=== PATIENT | female | born 1950 | race Hispanic/Latino ===

== ENCOUNTER → 2017-10-30 | Day surgery (SDC) | payer MEDICARE ==
[2017-10-29 14:50] LABS: BASOPHILS % 0.6 % (0.0-1.0); EOSINOPHILS # (AUTO) 0.1 (0.0-0.4); HEMATOCRIT 35.9 % (34.2-44.1); HEMOGLOBIN 12.3 g/dL (12.0-16.0); LYMPHOCYTES # (AUTO) 2.4 (1.0-3.2); LYMPHOCYTES % 35.3 % (18.0-39.1); MEAN CORPUSCULAR HEMOGLOBIN 31.5 pg (28-32); MEAN CORPUSCULAR HGB CONC 34.3 g/dL (31-35); MEAN CORPUSCULAR VOLUME 91.8 fL (81-99); MONOCYTES # (AUTO) 0.5 (0.2-0.8); MONOCYTES % 7.4 % (4.4-11.3); NEUTROPHILS # (AUTO) 3.7 (2.1-6.9); NEUTROPHILS % 54.4 % (38.7-80.0); PLATELET COUNT 236 x10e3/uL (140-360); RED BLOOD COUNT 3.91 x10e6/uL (3.6-5.1)
[2017-10-29 15:04] LABS: INR 0.99; PROTHROMBIN TIME 12.3 seconds (11.9-14.5)
[2017-10-29 15:14] LABS: ALANINE AMINOTRANSFERASE 23 IU/L (0-55); ALBUMIN 3.7 g/dL (3.5-5.0); ALBUMIN/GLOBULIN RATIO 1.1 (0.8-2.0); ALKALINE PHOSPHATASE 63 IU/L (40-150); ANION GAP 12.8 mmol/L (8-16); BLOOD UREA NITROGEN 15 mg/dL (7-26); BUN/CREATININE RATIO 18 (6-25); CALCIUM 9.5 mg/dL (8.4-10.2); CARBON DIOXIDE 30 mmol/L (22-29); CHLORIDE 97 mmol/L (98-107); CHOL/HDL RATIO 4.8 (3.0-3.6); CHOLESTEROL 216 MD/DL (0-199); CREATININE, SERUM 0.83 mg/dL (0.57-1.11); EST GLOMERULAR FILTRATION RATE > 60 ML/MIN (60-); GLUCOSE 139 mg/dL (74-118); HDL CHOLESTEROL 45 MG/DL (40-60); LDL CHOLESTEROL 122 MG/DL (60-130); POTASSIUM 3.8 mmol/L (3.5-5.1); SODIUM 136 mmol/L (136-145); TRIGLYCERIDES 244 MG/DL (0-149)
[2017-10-30] VITALS (9 sets, daily range): BP systolic 126–177; BP diastolic 54–73
[~2017-10-30] VITALS: Ht 157.5 cm; Wt 74.4 kg
[~2017-10-30] MED LIST: AMLODIPINE BESYL5 MG PO; ASPIRIN 325 MG TAB ONE; ASPIRIN81 MG PO; ATORVASTATIN CA20 MG PO; BENZONATATE100 MG PO; CLOPIDOGREL BISULFATE 75 MG TAB ONE; FENTANYL CITRATE/PF 100MCG/2 ML INJ ONE; GABAPENTIN100 MG; GABAPENTIN300 MG PO; GUAIFENESI100 MG/5 M PO; HEPARIN SOD (PORCINE) 1000 UNIT/ML 30ML ONE; HEPARIN SOD/SOD CHLORIDE 2,000 ML ONE; HYDRALAZINE HCL 20 MG/ML VIAL ONE; IOPAMIDOL 300MG/ML 100 ML INFUS..BTL IV ONE; IOPAMIDOL 370 MG/ML 200 ML INFUS..BTL INJ ONE; LIDOCAINE HCL 2% LOCAL 20 ML VIAL ONE; LOPRESSOR25 MG PO; LOSARTAN POTAS100 MG PO; LOVAZA1 GM PO; MIDAZOLAM HCL 2 MG/2 ML VIAL ONE; MULTIVITAMINS1 EAC7 PO; PANTOPRAZOLE SO40 MG PO; PIOGLITAZONE30 MG PEG; SODIUM CHLORIDE 0.9% 1000ML 1,000 ML ONE; SORE THROAT LO1 EAC3 PO; TORSEMIDE10 MG PO; [UNRECOGNIZED DRUG - OTHER] PO
--- NOTE | 2017-10-30 19:18 | Operative Report ---
DATE OF PROCEDURE: October 30, 2017 PROCEDURE PERFORMED: Cardiac catheterization. PROCEDURE INDICATIONS 1. Angina pectoris, CCS-III, stable with an abnormal stress test done at outside hospital. 2. Life-limiting claudication affecting left more than right lower extremity. PROCEDURES PERFORMED 1. Left heart catheterization. 2. Selective coronary angiography. 3. Left internal mammary artery to left anterior descending graft angiography. 4. Aortogram of descending aorta. 5. Abdominal aortogram. 6. Selective lower extremity angiography, bilateral. 7. Third-order catheter placement from right common femoral artery to left common femoral artery. 8. Additional third-order catheter placement from right common femoral artery to the left popliteal artery for hmhhj-ekv-pdon vessel angiography of the left lower extremity due to an issue with poorly visualized vessel. 9. Left anterior tibial percutaneous transluminal angioplasty 10. Right common femoral artery 6-Colombian Angio-Seal closure. PROCEDURE COMPLICATIONS: None. ESTIMATED BLOOD LOSS: Less than 15 mL. PROCEDURE SUMMARY: After consent was obtained, patient was prepped and draped in a sterile fashion and the right femoral site was locally infiltrated with 2% lidocaine. Access was obtained with micropuncture, and a short 6-Colombian sheath was placed. All catheters were railed to their respective positions over a leading wire for the interventional portion of the procedure, and heparin was used to maintain an ACT over 250. Aspirin and Plavix were also provided. 1. The LV pressure was 201/12 with end-diastolic pressure of 30. 2. The aortic pressure was 197/74. 3. LV-gram reveals preserved LV systolic function, normal regional wall motion and a left ventricular ejection fraction of 60% to 65%. 4. Left main large in caliber with a 20% distal stenosis gives an LAD and a circumflex. 5. The LAD has proximal luminal irregularities. In the distal portion after a diagonal stent, the LAD has 100% stenosis. Distal to the stenosis there is patent filling of the LAD from a PALACIOS to LAD which is patent. Collaterals arise from the distal LAD fed by the PALACIOS. These collaterals fill the RPDA and RPLV and are grade 2 collaterals. 6. The circumflex has 40% mid calcific stenosis, gives a left atrial branch and 2 obtuse marginals. 7. The right coronary artery is dominant. In the proximal to midportion it is 100% stenosed with distal filling of the midsegment of the RCA from bridging collaterals from the proximal RCA. The distal RCA is occluded again 100%. Distal to this the RPDA and RPLV fill from collaterals on the distal LAD via the PALACIOS. 8. No additional grafts were noted other than an occluded graft to RCA observed on aortogram. No other patent grafts other than the PALACIOS, which is patent, were observed. The abdominal aorta infrarenal has a 40% extrinsic calcific lesion and gives off the iliac arteries. The iliac arteries each have 30% stenosis. There is a back orthopedic hardware noted. Therefore, orthogonal views were performed to confirm patency of the iliac arteries. The internal and external iliac arteries have luminal irregularities filled with the common femoral and profunda femoris, SFAs and popliteal arteries bilaterally with a stenosis less than 30% . The proximal segment of the right anterior tibial, TP trunk, peroneal and posterior tibial artery seems patent. However, the mid to distal segment of these vessels are not well visualized. The left anterior tibial in the midportion had 100% chronic total occlusion. This was revascularized with a resultant less than 10% residual stenosis, no dissection, no perforation, UVALDO 3 flow post procedure. TP trunk, peroneal artery and posterior tibial artery on the left are patent with luminal irregularities. For the interventional portion of the procedure, a Roadrunner wire was used to advance a Seeker catheter into the proximal stent of the left anterior tibial. This was exchanged for a Runthrough wire, which would continue to engage collaterals at the INSULATION BOARD HEAD SAW OPERATOR proximal . This was, therefore, exchanged further for a wire, which was able to cross adequately the area of stenosis. A Seeker catheter was advanced past the occlusion and intraluminal catheter position confirmed; therefore, exchanged for a [place] wire over which a 3.0 x 150 Ultraverse balloon was inflated across the area of stenosis with resultant excellent results as described above. At the end of the procedure, a right common femoral artery 6-Colombian Angio-Seal was deployed, achieving hemostasis. CONCLUSION: Patent left internal mammary artery to left anterior descending. Chronic total occlusion of the right coronary artery with filling via collaterals. Uncontrolled hypertension and peripheral arterial disease, now status post left anterior tibial percutaneous transluminal angioplasty. RECOMMENDATIONS: Aggressive medical therapy. Continue medical management for coronary artery disease and peripheral arterial disease including aspirin, statin, beta sixto therapy. Add clopidogrel for patient status post revascularization of the left anterior tibial. Follow up in the office in 1 to 2 weeks. Job#: [id number] EV
== END | disposition home or self-care (01) ==
LOC: CATH LAB 08:15
PROVIDERS: ATTEND Internal Medicine Cardiovascular Disease
DX: I25.708 Atherosclerosis of coronary artery bypass graft(s), unspecified, with other forms of angina pectoris (principal); I25.82 Chronic total occlusion of coronary artery; I70.213 Atherosclerosis of native arteries of extremities with intermittent claudication, bilateral legs; I70.92 Chronic total occlusion of artery of the extremities; R94.39 Abnormal result of other cardiovascular function study; I10 Essential (primary) hypertension; E78.5 Hyperlipidemia, unspecified; R01.1 Cardiac murmur, unspecified; I83.893 Varicose veins of bilateral lower extremities with other complications; E11.8 Type 2 diabetes mellitus with unspecified complications; E66.9 Obesity, unspecified; Z01.810 Encounter for preprocedural cardiovascular examination; Z01.812 Encounter for preprocedural laboratory examination; Z79.02 Long term (current) use of antithrombotics/antiplatelets; Z79.82 Long term (current) use of aspirin; Z79.84 Long term (current) use of oral hypoglycemic drugs; Z68.31 Body mass index [BMI] 31.0-31.9, adult; Z95.1 Presence of aortocoronary bypass graft; Z95.5 Presence of coronary angioplasty implant and graft; Z95.820 Peripheral vascular angioplasty status with implants and grafts; Z82.49 Family history of ischemic heart disease and other diseases of the circulatory system
CPT/HCPCS: 36415; 37228; 80053; 80061; 85025; 85610; 93005; 93459; C1769 ×2; C1887; J0360; J1644; J2001; J2250; J7030; Q9967 ×2; 36140; 36200; 37232; 75630; 75710

== ENCOUNTER → 2018-03-13 | Outpatient (CLI) | payer MEDICARE ==
[~2018-03-13] MED LIST changes: -ASPIRIN 325 MG TAB ONE; -CLOPIDOGREL BISULFATE 75 MG TAB ONE; +CLOPIDOGREL75 MG PO; -FENTANYL CITRATE/PF 100MCG/2 ML INJ ONE; -HEPARIN SOD (PORCINE) 1000 UNIT/ML 30ML ONE; -HEPARIN SOD/SOD CHLORIDE 2,000 ML ONE; -HYDRALAZINE HCL 20 MG/ML VIAL ONE; -IOPAMIDOL 300MG/ML 100 ML INFUS..BTL IV ONE; -LIDOCAINE HCL 2% LOCAL 20 ML VIAL ONE; -MIDAZOLAM HCL 2 MG/2 ML VIAL ONE; -PIOGLITAZONE30 MG PEG; +PIOGLITAZONE30 MG PO; +SODIUM CHLORIDE 0.9% 100 ML 100 ML ONE; -SODIUM CHLORIDE 0.9% 1000ML 1,000 ML ONE
[2018-03-13 15:58] LABS: BLOOD UREA NITROGEN 11 mg/dL (7-26); BUN/CREATININE RATIO 14 (6-25); CREATININE, SERUM 0.79 mg/dL (0.57-1.11); EST GLOMERULAR FILTRATION RATE > 60 ML/MIN (60-)
--- NOTE | 2018-03-14 07:59 | Diagnostic Imaging Report ---
CTA of the abdomen and pelvis and bilateral lower extremities with contrast History: Leg pain, history of lower extremity angiography 10/2017. Comparison: <None available>. Technique: Multidetector CT scanning of the abdomen and pelvis and bilateral lower extremities was administered in arterial phase after intravenous administration of 100 cc of Isovue 370. No oral contrast was given. Sagittal and coronal multiplanar as well as volume rendering reformations were obtained. Discussion: Vascular findings: Abdominal aorta and proximal branches: Streak artifact from spinal hardware somewhat limits evaluation of the mid abdominal aorta. There are extensive atherosclerotic calcifications involving the abdominal aorta, and moderate atherosclerotic calcifications of the branch vessels. No evidence of aortic aneurysm or dissection. Celiac artery, SMA, and RACIEL origins appear patent. There are two renal arteries bilaterally. The bilateral common, external, and internal iliac arteries appear patent. Bilateral lower extremity runoff: Right lower extremity: Mild atherosclerotic changes of the common femoral artery without stenosis. Moderate atherosclerotic changes of the superficial femoral artery with a focal severe stenosis on axial image 160 and mild to moderate multifocal stenoses elsewhere. The deep femoral artery is patent. The popliteal artery demonstrates mild atherosclerotic changes without stenosis. The peroneal artery is patent throughout its course but diminutive distally. The posterior tibial artery is patent throughout its course. Mild non-specific soft tissue stranding in the lower leg. Left lower extremity: Mild atherosclerotic changes of the common and superficial femoral arteries without stenosis. The deep femoral artery is patent. The popliteal artery demonstrates mild atherosclerotic changes without stenosis. Anterior tibial artery demonstrates moderate to severe stenoses in the proximal and mid portion but is patent distally and supplies a patent dorsalis pedis artery. The peroneal artery is patent in the proximal and mid portion but not visualized distally at the level of the distal tibia. The posterior tibial artery demonstrates mild multifocal stenoses but is patent to the foot. There are surgical clips along the soft tissues of the left lower leg medially. Mild non-specific soft tissue stranding in the lower leg. Abdomen: Scattered dependent atelectatic changes. Four chamber cardiomegaly. Coronary atherosclerosis. No focal hepatic lesions or biliary ductal dilatation. Status post cholecystectomy. The spleen, pancreas, adrenal glands, and right kidney are normal. There is a renal cortical defect on the left. The small bowel, and large bowel are unremarkable. Small hiatal hernia. Fat containing umbilical hernia. Normal appendix. There is no evidence of adenopathy or free fluid. Posterior decompression with spinal fusion from L3-L5 with intervertebral spacers with extensive streak artifact. No evidence of acute bony abnormality. Pelvis: The bladder is unremarkable. There is no evidence of adenopathy or free fluid. Fibroid uterus. IMPRESSION: 1) Extensive atherosclerotic changes of the abdominal aorta without evidence of aneurysm or dissection. 2) Focal severe stenosis of the right superficial femoral artery. Patent three vessel runoff to the right lower extremity. 3) Mild to moderate atherosclerotic changes in the left lower extremity. Anterior and posterior tibial arteries supply the runoff to the left lower extremity. Patent proximal and mid peroneal artery with non-visualization of the distal portion which may reflect occlusion or slow flow. Signed by: Dr. Sagar Dobbs MD on 03/14/2018 7:56 AM
== END ==
LOC: CT 15:11
PROVIDERS: ATTEND Internal Medicine
DX: I73.9 Peripheral vascular disease, unspecified (principal)
CPT/HCPCS: 36415; 75635; 82565; 84520; Q9967

== ENCOUNTER → 2018-03-27 | Day surgery (SDC) | payer MEDICARE ==
[2018-03-26 10:55] LABS: BASOPHILS % 0.7 % (0.0-1.0); EOSINOPHILS # (AUTO) 0.1 (0.0-0.4); EOSINOPHILS % 1.9 % (0.0-6.0); HEMOGLOBIN 11.7 g/dL (12.0-16.0); LYMPHOCYTES # (AUTO) 1.9 (1.0-3.2); LYMPHOCYTES % 32.5 % (18.0-39.1); MEAN CORPUSCULAR HEMOGLOBIN 30.8 pg (28-32); MEAN CORPUSCULAR HGB CONC 33.4 g/dL (31-35); MEAN CORPUSCULAR VOLUME 92.1 fL (81-99); MONOCYTES # (AUTO) 0.7 (0.2-0.8); MONOCYTES % 11.3 % (4.4-11.3); NEUTROPHILS % 52.9 % (38.7-80.0); PLATELET COUNT 234 x10e3/uL (140-360); RED CELL DISTRIBUTION WIDTH 12.6 % (11.7-14.4)
[2018-03-26 11:19] LABS: INR 0.89; PROTHROMBIN TIME 12.9 seconds (11.9-14.5)
[2018-03-26 11:29] LABS: ALANINE AMINOTRANSFERASE 15 IU/L (0-55); ALBUMIN 3.6 g/dL (3.5-5.0); ALBUMIN/GLOBULIN RATIO 1.2 (0.8-2.0); ALKALINE PHOSPHATASE 51 IU/L (40-150); ANION GAP 13.8 mmol/L (8-16); BLOOD UREA NITROGEN 13 mg/dL (7-26); BUN/CREATININE RATIO 16 (6-25); CALCIUM 9.6 mg/dL (8.4-10.2); CARBON DIOXIDE 27 mmol/L (22-29); CHLORIDE 96 mmol/L (98-107); CHOL/HDL RATIO 4.5 (3.0-3.6); CHOLESTEROL 213 MD/DL (0-199); CREATININE, SERUM 0.81 mg/dL (0.57-1.11); EST GLOMERULAR FILTRATION RATE > 60 ML/MIN (60-); GLUCOSE 123 mg/dL (74-118); HDL CHOLESTEROL 47 MG/DL (40-60); LDL CHOLESTEROL 131 MG/DL (60-130); POTASSIUM 3.8 mmol/L (3.5-5.1); SODIUM 133 mmol/L (136-145); TRIGLYCERIDES 176 MG/DL (0-149)
[2018-03-27] VITALS (10 sets, daily range): BP systolic 104–156; BP diastolic 53–79
[~2018-03-27] VITALS: Ht 154.9 cm; Wt 79.4 kg
[~2018-03-27] MED LIST changes: +FENTANYL CITRATE/PF 100MCG/2 ML INJ ONE; +HEPARIN SOD (PORCINE) 1000 UNIT/ML 30ML ONE; +HEPARIN SOD/SOD CHLORIDE 1,000 ML ONE; +HEPARIN SOD/SOD CHLORIDE 2,000 ML ONE; +HYDRALAZINE HCL 20 MG/ML VIAL ONE; +HYDROCODONE/APAP 5MG-325MG TAB ONE; +IOPAMIDOL 300MG/ML 100 ML INFUS..BTL IV ONE; +IOPAMIDOL 300MG/ML 50ML INFUS..BTL IV ONE; -IOPAMIDOL 370 MG/ML 200 ML INFUS..BTL INJ ONE; +LIDOCAINE HCL 1% LOCAL INJ 20 ML VIAL ONE; +MIDAZOLAM HCL 2 MG/2 ML VIAL ONE; -SODIUM CHLORIDE 0.9% 100 ML 100 ML ONE; +SODIUM CHLORIDE 0.9% 1000ML 1,000 ML ONE
--- OUTSIDE RECORDS SUMMARY | 2018-03-27 11:13 | XMS REPORT ---
Author Author [facility] Address Unknown Phone Unavailable Care Team Providers Care User Experience Lead Name Role Phone Erma TEJEDA Unavailable Unavailable Problems This patient has no known problems. Allergies, Adverse Reactions, Alerts This patient has no known allergies or adverse reactions. Medications This patient has no known medications. Results Test Description Test Time Test Comments Text Results Atomic Results Result Comments CTA ABD/PEL/RUN OFF 2018-03-14 07:27:00 [place] [address] Patient Name: DARON WOODSON MR #: [id number] : 1950 Age/Sex: 68/F Req #: [id number] Adm Physician: Ordered by: GILBERTO TEJEDA MD Report #: [id number] Location: CT Room/Bed: Procedure: [id number] CT/CTA ABD/PEL/RUN OFF Exam Date: 03/13/18 Exam Time: 1700 REPORT STATUS: Signed CTA of the abdomen and pelvis and bilateral lower extremities with contrast History: Leg pain, history of lower extremity angiography 10/2017. Comparison: <None available>. Technique: Multidetector CT scanning of the abdomen and pelvis and bilateral lower extremities was administered in arterial phase after intravenous administration of 100 cc of Isovue 370. No oral contrast was given. Sagittal and coronal multiplanar as well as volume rendering reformations were obtained. Discussion: Vascular findings: Abdominal aorta and proximal branches: Streak artifact from spinal hardware somewhat limits evaluation of the mid abdominal aorta. There are extensive atherosclerotic calcifications involving the abdominal aorta, and moderate atherosclerotic calcifications of the branch vessels. No evidence of aortic aneurysm or dissection. Celiac artery, SMA, and RACIEL origins appear patent. There are two renal arteries bilaterally. The bilateral common, external, and internal iliac arteries appear patent. Bilateral lower extremity runoff: Right lower extremity: Mild atherosclerotic changes of the common femoral artery without stenosis. Moderate atherosclerotic changes of the superficial femoral artery with a focal severe stenosis on axial image 160 and mild to moderate multifocal stenoses elsewhere. The deep femoral artery is patent. The popliteal artery demonstrates mild atherosclerotic changes without stenosis. The peroneal artery is patent throughout its course but diminutive distally. The posterior tibial artery is patent throughout its course. Mild non-specific soft tissue stranding in the lower leg. Left lower extremity: Mild atherosclerotic changes of the common and superficial femoral arteries without stenosis. The deep femoral artery is patent. The popliteal artery demonstrates mild atherosclerotic changes without stenosis. Anterior tibial artery demonstrates moderate to severe stenoses in the proximal and mid portion but is patent distally and supplies a patent dorsalis pedis artery. The peroneal artery is patent in the proximal and mid portion but not visualized distally at the level of the distal tibia. The posterior tibial artery demonstrates mild multifocal stenoses but is patent to the foot. There are surgical clips along the soft tissues of the left lower leg medially. Mild non-specific soft tissue stranding in the lower leg. Abdomen: Scattered dependent atelectatic changes. Four chamber cardiomegaly. Coronary atherosclerosis. No focal hepatic lesions or biliary ductal dilatation. Status post cholecystectomy. The spleen, pancreas, adrenal glands, and right kidney are normal. There is a renal cortical defect on the left. The small bowel, and large bowel are unremarkable. Small hiatal hernia. Fat containing umbilical hernia. Normal appendix. There is no evidence of adenopathy or free fluid. Posterior decompression with spinal fusion from L3-L5 with intervertebral spacers with extensive streak artifact. No evidence of acute bony abnormality. Pelvis: The bladder is unremarkable. There is no evidence of adenopathy or free fluid. Fibroid uterus. IMPRESSION: 1) Extensive atherosclerotic changes of the abdominal aorta without evidence of aneurysm or dissection. 2) Focal severe stenosis of the right superficial femoral artery. Patent three vessel runoff to the right lower extremity. 3) Mild to moderate atherosclerotic changes in the left lower extremity. Anterior and posterior tibial arteries supply the runoff to the left lower extremity. Patent proximal and mid peroneal artery with non-visualization of the distal portion which may reflect occlusion or slow flow. Signed by: Dr. Osbaldo Pepe MD on 03/14/2018 7:56 AM Dictated By: OSBALDO PEPE MD 5 Transcribed By: ROSA ISELA on 03/14/18755 COPY TO: GILBERTO TEJEDA MD
--- NOTE | 2018-03-28 11:56 | Operative Report ---
DATE OF PROCEDURE: March 27, 2018 PROCEDURES PERFORMED 1. Conscious sedation 1 hour. 2. Abdominal aortography. 3. Third-order peripheral angiography of the right lower extremity. 4. First-order peripheral angiography of the left lower extremity. 5. Orbital atherectomy and percutaneous transluminal angioplasty of the right superficial femoral artery. PREPROCEDURE DIAGNOSIS: Peripheral arterial disease with claudication. POSTPROCEDURE DIAGNOSIS: Peripheral arterial disease with claudication. ESTIMATED BLOOD LOSS: Less than 20 mL. SPECIMENS REMOVED: None. PROCEDURE DETAILS: After informed consent was obtained, the patient was brought to the cardiac catheterization laboratory in a fasting and nonsedated state. Bilateral groins were prepped and draped in the usual sterile fashion. Lidocaine 2% was infiltrated over the left anterior groin for local anesthesia. Using a micropuncture needle, the left common femoral artery was accessed using modified Seldinger technique and a 5-Senegalese sheath was placed. Next, an Omni Flush catheter was advanced over the wire and situated in the infrarenal abdominal aorta. Abdominal aortography was performed. Next, the same catheter was used to cross up and over into the right superficial femoral artery position, and diagnostic angiography was performed. This revealed a significant 80% to 90% stenosis of the right superficial femoral artery. A decision was made to treat this lesion. Next, I crossed an up-and-over 6-Senegalese sheath. The lesion was crossed with a ViperWire, and multiple runs of orbital atherectomy were performed. Next, the lesion was predilated with a 5 mm balloon, then subsequently with a 5 mm Lutonix drug-coated balloon. Final angiography revealed a mild to [id number]-yjpnhpiy dissection which will be treated medically. The sheath was exchanged. The closure site was closed with a Mynx device. The patient tolerated the procedure well with no immediate complications and was transferred back to her room in stable condition. PROCEDURAL FINDINGS 1. The infrarenal abdominal aorta is free of aneurysm or dissection. 2. The iliac system is patent. 3. The right common femoral, profunda femoris are patent. The mid right SFA has an 80% to 90% stenosis. 4. The right popliteal artery is patent, and there is 3-vessel runoff. 5. The left femoral, popliteal system is patent. The left anterior tibial has a 50% to 60% mid stenosis. The left posterior tibial has a 50% to 60% mid stenosis. The left peroneal is patent. IMPRESSION AND PLAN: This is a 68-year-old woman who presented with claudication symptoms and known peripheral arterial disease. She underwent successful atherectomy and percutaneous transluminal angioplasty of the right superficial femoral artery. Job#: [id number] EV
== END | disposition home or self-care (01) ==
LOC: CATH LAB 11:10
PROVIDERS: ATTEND Internal Medicine Cardiovascular Disease
DX: I70.213 Atherosclerosis of native arteries of extremities with intermittent claudication, bilateral legs (principal); I25.118 Atherosclerotic heart disease of native coronary artery with other forms of angina pectoris; I83.893 Varicose veins of bilateral lower extremities with other complications; I10 Essential (primary) hypertension; E78.5 Hyperlipidemia, unspecified; E11.69 Type 2 diabetes mellitus with other specified complication; E66.9 Obesity, unspecified; Z01.810 Encounter for preprocedural cardiovascular examination; Z01.812 Encounter for preprocedural laboratory examination; Z79.02 Long term (current) use of antithrombotics/antiplatelets; Z79.82 Long term (current) use of aspirin; Z79.84 Long term (current) use of oral hypoglycemic drugs; Z82.49 Family history of ischemic heart disease and other diseases of the circulatory system
CPT/HCPCS: 36415; 37225; 75625; 75716; 80053; 80061; 85025; 85610; 93005; C1724; C1725 ×2; C1769 ×2; C1887; J0360; J1644; J2001; J2250; J7030; Q9967 ×2; 36247; 37186

== ENCOUNTER → 2018-09-08 | Outpatient (CLI) | payer MEDICARE ==
[~2018-09-08] MED LIST changes: -FENTANYL CITRATE/PF 100MCG/2 ML INJ ONE; -HEPARIN SOD (PORCINE) 1000 UNIT/ML 30ML ONE; -HEPARIN SOD/SOD CHLORIDE 1,000 ML ONE; -HEPARIN SOD/SOD CHLORIDE 2,000 ML ONE; -HYDRALAZINE HCL 20 MG/ML VIAL ONE; -HYDROCODONE/APAP 5MG-325MG TAB ONE; -IOPAMIDOL 300MG/ML 100 ML INFUS..BTL IV ONE; -IOPAMIDOL 300MG/ML 50ML INFUS..BTL IV ONE; +IOPAMIDOL 370 MG/ML 200 ML INFUS..BTL INJ ONE; -LIDOCAINE HCL 1% LOCAL INJ 20 ML VIAL ONE; -MIDAZOLAM HCL 2 MG/2 ML VIAL ONE; +SODIUM CHLORIDE 0.9% 100 ML 100 ML ONE; -SODIUM CHLORIDE 0.9% 1000ML 1,000 ML ONE
[2018-09-08 12:40] LABS: BLOOD UREA NITROGEN 21 mg/dL (7-26); BUN/CREATININE RATIO 24 (6-25); CREATININE, SERUM 0.87 mg/dL (0.57-1.11); EST GLOMERULAR FILTRATION RATE > 60 ML/MIN (60-)
--- NOTE | 2018-09-08 14:31 | Diagnostic Imaging Report ---
EXAMINATION: CTA abdomen and pelvis and lower extremities with contrast. TECHNIQUE: Spiral CT images of the abdomen and pelvis were performed from the lung bases to the feet after the intravenous administration of 100 cc Isovue-370. Coronal and sagittal reformatted images were obtained. For optimization of anatomic definition, volume rendered 3-D reconstructed images were generated on a stand-alone workstation under direct supervision of the interpreting physician. COMPARISON: 03/13/2018 CLINICAL HISTORY:Peripheral vascular disease DISCUSSION: Vasculature: The abdominal aorta is not aneurysmal. Atherosclerotic calcification of the abdominal aorta and major branch vessel origins. Celiac axis is patent with conventional celiac anatomy. SMA origin is patent. 2 renal arteries supply each kidney, the origins of which are patent. The RACIEL origin is patent. The infrarenal abdominal aorta is slightly limited just above the bifurcation secondary to streak artifact from lumbar spine hardware. Iliac inflow: Left: Calcified and noncalcified atherosclerotic plaque throughout without significant common or external iliac stenosis. The internal iliac artery and proximal visceral branches are patent. Right: Calcified atherosclerotic plaque without significant stenosis of the common or external iliac artery. Internal iliac artery and proximal visceral branches are patent. Femoral-popliteal segments: Left: The common femoral artery is patent. The femoral bifurcation is patent. The profunda femoris artery and proximal muscular branches are patent. There is short segment mild stenosis of the proximal SFA. Otherwise diffuse calcified and noncalcified atherosclerotic plaque of the SFA without significant stenosis. The above-knee and below-knee segments of popliteal artery are patent Right: Common femoral artery is patent. The femoral bifurcation is patent. The profunda femoris artery and proximal muscular branches are patent. Calcified and noncalcified atherosclerotic plaque along the course of the SFA. A short segment moderate stenosis proximally. Previously described focal severe stenosis of the SFA at the adductor hiatus has probably been treated by angioplasty in the interim, without significant residual stenosis (see image 153). The popliteal artery is patent. Runoff: Left: The anterior tibial artery is patent and is visualized to its continuation as the dorsalis pedis artery. The tibioperoneal trunk is patent. The peroneal artery is patent to its expected termination at the ankle joint. The posterior tibial artery is patent to its continuation as the lateral plantar artery. Right: The anterior tibial artery is patent and is visualized to its continuation as the dorsalis pedis artery. The tibioperoneal trunk is patent. The peroneal artery is patent to its termination above the ankle joint. Posterior tibial artery is patent and is visualized to its continuation as the lateral plantar artery. ABDOMEN/PELVIS: LOWER THORAX:Unremarkable. HEPATOBILIARY: No focal hepatic lesions. No intra-or extrahepatic biliary ductal dilation. Gallbladder has been resected. SPLEEN: Heterogeneity of splenic attenuation reflects arterial phase of scan. PANCREAS: No focal masses or ductal dilatation. ADRENALS: No adrenal nodules. KIDNEYS/URETERS: Multiple cortical defects in the posterior left kidney which may relate to prior infectious or inflammatory process. No solid renal mass lesion. No hydronephrosis. PELVIC ORGANS/BLADDER: The urinary bladder is incompletely distended but otherwise unremarkable. Calcified fundal uterine fibroid. No adnexal mass. PERITONEUM/RETROPERITONEUM: No ascites. No pneumoperitoneum. LYMPH NODES: No inguinal, pelvic sidewall, retroperitoneal, or mesenteric lymphadenopathy. VESSELS: As above. GI TRACT: The large bowel shows no evidence of distention or wall thickening. There are a few diverticula scattered along the course of the sigmoid colon without wall thickening or inflammatory change. Apparent wall thickening of the descending colon is likely related to poor distention. The appendix is normal. Small hiatal hernia. The stomach is collapsed with prominent rugal folds. No small bowel dilatation to suggest obstruction. BONES AND SOFT TISSUE: Postsurgical changes related to mesh repair of ventral abdominal wall hernia. Right mid abdominal paramedian ventral hernia with a neck measuring 4.8 cm transversely seen on series 3 image 77. Hernia sac contains only omental vessels without inflammatory change. Multiple surgical clips in the medial soft tissues of the left upper leg, likely related to venous graft harvest. No osseous destructive lesions. Intact lumbar spine fusion hardware. IMPRESSION: Diffuse atherosclerotic vascular disease of the abdominal, pelvic and lower extremity systems. No abdominal aortic aneurysm or significant visceral branch stenosis. No significant iliac inflow stenosis. Probable interval angioplasty of previously described short segment severe stenosis of the right superficial femoral artery at the adductor hiatus, without significant residual stenosis. Otherwise no significant femoral-popliteal stenosis. Conventional three-vessel lower extremity runoff bilaterally. Signed by: Dr. Edmundo Rosen M.D. on 09/08/2018 2:27 PM
== END ==
LOC: CT 11:37
PROVIDERS: ATTEND Internal Medicine
DX: I73.9 Peripheral vascular disease, unspecified (principal)
CPT/HCPCS: 36415; 75635; 82565; 84520; Q9967

== ENCOUNTER → 2019-08-05 | Day surgery (SDC) | payer MEDICARE ==
--- NOTE | 2019-08-03 14:00 | NUR ---
Checked patient temperature 98.2F via skin probe. Patient denies being out of the country in the last 14 days. Patient denies being in contact with anyone who is a "confirmed Lopez virus patient" in the last 14 days. Patient denies fever, cough or shortness of breath in the last 14 days.
[2019-08-03 15:03] LABS: BASOPHILS % 0.5 % (0.0-1.0); EOSINOPHILS # (AUTO) 0.2 (0.0-0.4); EOSINOPHILS % 2.4 % (0.0-6.0); HEMATOCRIT 33.4 % (34.2-44.1); HEMOGLOBIN 10.9 g/dL (12.0-16.0); LYMPHOCYTES # (AUTO) 1.8 (1.0-3.2); LYMPHOCYTES % 29.2 % (18.0-39.1); MEAN CORPUSCULAR HEMOGLOBIN 30.4 pg (28-32); MEAN CORPUSCULAR HGB CONC 32.6 g/dL (31-35); MONOCYTES # (AUTO) 0.8 (0.2-0.8); NEUTROPHILS # (AUTO) 3.5 (2.1-6.9); NEUTROPHILS % 55.4 % (38.7-80.0); PLATELET COUNT 234 x10e3/uL (140-360); RED BLOOD COUNT 3.59 x10e6/uL (3.6-5.1); RED CELL DISTRIBUTION WIDTH 13.4 % (11.7-14.4)
[2019-08-03 15:13] LABS: INR 0.92; PROTHROMBIN TIME 12.9 seconds (11.9-14.5)
[2019-08-03 15:22] LABS: ALANINE AMINOTRANSFERASE 13 IU/L (0-55); ALBUMIN 3.8 g/dL (3.5-5.0); ALBUMIN/GLOBULIN RATIO 1.2 (0.8-2.0); ALKALINE PHOSPHATASE 57 IU/L (40-150); BLOOD UREA NITROGEN 17 mg/dL (7-26); BUN/CREATININE RATIO 20 (6-25); CALCIUM 8.8 mg/dL (8.4-10.2); CARBON DIOXIDE 28 mmol/L (22-29); CHLORIDE 104 mmol/L (98-107); CREATININE, SERUM 0.84 mg/dL (0.57-1.11); EST GLOMERULAR FILTRATION RATE > 60 ML/MIN (60-); GLUCOSE 149 mg/dL (74-118); SODIUM 137 mmol/L (136-145)
[~2019-08-05] VITALS: Ht 152.4 cm; Wt 78.9 kg
[2019-08-05] VITALS (8 sets, daily range): BP systolic 121–178; BP diastolic 42–77
[~2019-08-05] MED LIST changes: +CARVEDILOL12.5 MG PO; +ESOMEPRAZOLE MA40 MG PO; +FENTANYL CITRATE/PF 100MCG/2 ML INJ ONE; +FUROSEMIDE40 MG PO; +HEPARIN SOD/SOD CHLORIDE 2,000 ML ONE; +HYDRALAZINE HCL 20 MG/ML VIAL ONE; +HYDROCHLOROTHIA25 MG PO; +JANUMET XR 50-1 EAC1 PO; +LIDOCAINE HCL 2% LOCAL 20 ML VIAL ONE; +MIDAZOLAM HCL 2 MG/2 ML VIAL ONE; -SODIUM CHLORIDE 0.9% 100 ML 100 ML ONE; +SODIUM CHLORIDE 0.9% 1000ML 1,000 ML ONE; +VERAPAMIL HCL 2.5 MG/ML 2 ML VIAL ONE
--- OUTSIDE RECORDS SUMMARY | 2019-08-05 07:20 | XMS REPORT ---
Author Author Admin, [place] Organization [facility] Address [address] [place] [id number] Phone Allergies, Adverse Reactions, Alerts Allergy Name Reaction Description Start Date Severity Status Provider No Known Allergies Nancy Farrar Conditions or Problems Problem Name Problem Code Onset Date Status Entry Date Provider Comment Standard Description Annotate Problems Unknown Medication List Medication Instructions Start Date Stop Date Generic Name NDC Status Provider Patient Instruction No Drug Therapy Prescribed - none known did ask Nancy Farrar Vital Signs Date Name Value Unit Range Description blood pressure, diastolic 53 mm[Hg] BP reyna blood pressure, systolic 117 mm[Hg] BP sys pulse rate E&M 61 /min Heart rate
--- OUTSIDE RECORDS SUMMARY | 2019-08-05 07:20 | XMS REPORT ---
Author Author [facility] Address Unknown Phone Unavailable Care Team Providers Care Cement Mason Apprentice Name Role Phone Erma TEJEDA Unavailable Unavailable Carlos MEDINA Unavailable Unavailable BRITNEY COLEMAN Unavailable Unavailable Problems This patient has no known problems. Allergies, Adverse Reactions, Alerts This patient has no known allergies or adverse reactions. Medications This patient has no known medications. Encounters Start Date/Time End Date/Time Encounter Type Admission Type Attending [facility] Facility Care Department Encounter ID 2019-05-14 21:03:00 2019-05-14 21:03:00 Emergency E [facility] [id number] Results Test Description Test Time Test Comments Text Results Atomic Results Result Comments CTA ABD/PEL/RUN OFF 2018-09-08 14:11:00 [place] [address] Patient Name: DARON WOODSON MR #: [id number] : 1950 Age/Sex: 68/F Req #: [id number] Adm Physician: Ordered by: GILBERTO TEJEDA MD Report #: [id number] Location: CT Room/Bed: Procedure: [id number] CT/CTA ABD/PEL/RUN OFF Exam Date: 09/08/18 Exam Time: 1300 REPORT STATUS: Signed EXAMINATION: CTA abdomen and pelvis and lower extremities with contrast. TECHNIQUE: Spiral CT images of the abdomen and pelvis were performed from the lung bases to the feet after the intravenous administration of 100 cc Isovue-370. Coronal and sagittal reformatted images were obtained. For optimization of anatomic definition, volume rendered 3-D reconstructed images were generated on a stand-alone workstation under direct supervision of the interpreting physician. COMPARISON: 03/13/2018 CLINICAL HISTORY:Peripheral vascular disease DISCUSSION: Vasculature: The abdominal aorta is not aneurysmal. Atherosclerotic calcification of the abdominal aorta and major branch vessel origins. Celiac axis is patent with conventional celiac anatomy. SMA origin is patent. 2 renal arteries supply each kidney, the origins of which are patent. The RACIEL origin is patent. The infrarenal abdominal aorta is slightly limited just above the bifurcation secondary to streak artifact from lumbar spine hardware. Iliac inflow: Left: Calcified and noncalcified atherosclerotic plaque throughout without significant common or external iliac stenosis. The internal iliac artery and proximal visceral branches are patent. Right: Calcified atherosclerotic plaque without significant stenosis of the common or external iliac artery. Internal iliac artery and proximal visceral branches are patent. Femoral-popliteal segments: Left: The common femoral artery is patent. The femoral bifurcation is patent. The profunda femoris artery and proximal muscular branches are patent. There is short segment mild stenosis of the proximal SFA. Otherwise diffuse calcified and noncalcified atherosclerotic plaque of the SFA without significant stenosis. The above-knee and below-knee segments of popliteal artery are patent Right: Common femoral artery is patent. The femoral bifurcation is patent. The profunda femoris artery and proximal muscular branches are patent. Calcified and noncalcified atherosclerotic plaque along the course of the SFA. A short segment moderate stenosis proximally. Previously described focal severe stenosis of the SFA at the adductor hiatus has probably been treated by angioplasty in the interim, without significant residual stenosis (see image 153). The popliteal artery is patent. Runoff: Left: The anterior tibial artery is patent and is visualized to its continuation as the dorsalis pedis artery. The tibioperoneal trunk is patent. The peroneal artery is patent to its expected termination at the ankle joint. The posterior tibial artery is patent to its continuation as the lateral plantar artery. Right: The anterior tibial artery is patent and is visualized to its continuation as the dorsalis pedis artery. The tibioperoneal trunk is patent. The peroneal artery is patent to its termination above the ankle joint. Posterior tibial artery is patent and is visualized to its continuation as the lateral plantar artery. ABDOMEN/PELVIS: LOWER THORAX:Unremarkable. HEPATOBILIARY: No focal hepatic lesions. No intra-or extrahepatic biliary ductal dilation. Gallbladder has been resected. SPLEEN: Heterogeneity of splenic attenuation reflects arterial phase of scan. PANCREAS: No focal masses or ductal dilatation. ADRENALS: No adrenal nodules. KIDNEYS/URETERS: Multiple cortical defects in the posterior left kidney which may relate to prior infectious or inflammatory process. No solid renal mass lesion. No hydronephrosis. PELVIC ORGANS/BLADDER: The urinary bladder is incompletely distended but otherwise unremarkable. Calcified fundal uterine fibroid. No adnexal mass. PERITONEUM/RETROPERITONEUM: No ascites. No pneumoperitoneum. LYMPH NODES: No inguinal, pelvic sidewall, retroperitoneal, or mesenteric lymphadenopathy. VESSELS: As above. GI TRACT: The large bowel shows no evidence of distention or wall thickening. There are a few diverticula scattered along the course of the sigmoid colon without wall thickening or inflammatory change. Apparent wall thickening of the descending colon is likely related to poor distention. The appendix is normal. Small hiatal hernia. The stomach is collapsed with prominent rugal folds. No small bowel dilatation to suggest obstruction. BONES AND SOFT TISSUE: Postsurgical changes related to mesh repair of ventral abdominal wall hernia. Right mid abdominal paramedian ventral hernia with a neck measuring 4.8 cm transversely seen on series 3 image 77. Hernia sac contains only omental vessels without inflammatory change. Multiple surgical clips in the medial soft tissues of the left upper leg, likely related to venous graft harvest. No osseous destructive lesions. Intact lumbar spine fusion hardware. IMPRESSION: Diffuse atherosclerotic vascular disease of the abdominal, pelvic and lower extremity systems. No abdominal aortic aneurysm or significant visceral branch stenosis. No significant iliac inflow stenosis. Probable interval angioplasty of previously described short segment severe stenosis of the right superficial femoral artery at the adductor hiatus, without significant residual stenosis. Otherwise no significant femoral-popliteal stenosis. Conventional three-vessel lower extremity runoff bilaterally. Signed by: Dr. Echo Hogan M.D. on 09/08/2018 2:27 PM Dictated By: ECHO HOGAN MD 26 Transcribed By: ROSA ISELA on 09/08/181426 COPY TO: GILBERTO TEJEDA MD RAD, CHEST, 1 VIEW, NON DEPT 2018-08-11 12:58:00 Reason for exam:->DIZZINESSReason for exam:->EMESISReason for exam:->DIARRHEA FINAL REPORT AP view of the chest dated 08/11/2018 CLINICAL INFORMATION: DIZZINESSEMESISDIARRHEA Comment: Heart is enlarged. Pulmonary vasculature is unremarkable. A 1.6 cm nodule is seen in the right lower lobe. The rest of the lungs are clear. No pulmonary infiltrate or pleural effusion is present. Impression: Right lower lobe nodule. Recommend follow-up with CT of the chest. Signed: Mateo Felipe MDReport Verified Date/Time: 08/11/2018 12:58:44 Reading Location: [facility] C0[facility] Consult Reading Room ONIN I 2018-08-11 11:41:00 TROPONIN I (BEAKER) (test xzzg=562) < ng/mL 0.00-0.03 Troponin I (TnI) levels must be interpreted in the context of the presenting sym ptoms and the clinical findings. Elevated TnI levels indicate myocardial damage, but are not specific for ischemic heart disease. Elevated TnI levels are seen in patients with other cardiac conditions (including myocarditis and congestive h eart failure), and slight TnI elevations occur in patients with other conditions , including sepsis, renal failure, acidosis, acute neurological disease, and per sistent tachyarrhythmia.[id number] 11:34:00* Test Item Value Reference Range Comments MAGNESIUM (BEAKER) (test rudn=162) 1.8 mg/dL 1.6-2.6 BASIC METABOLIC [id number] 11:34:00* Test Item Value Reference Range Comments SODIUM (BEAKER) (test tqwo=857) 138 meq/L 136-145 POTASSIUM (BEAKER) (test zcfv=370) 3.4 meq/L 3.5-5.1 CHLORIDE (BEAKER) (test egbb=455) 104 meq/L 98-107 CO2 (BEAKER) (test cvqz=068) 23 meq/L 22-29 BLOOD UREA NITROGEN (BEAKER) (test bqlh=776) 17 mg/dL 7-21 CREATININE (BEAKER) (test fmrf=070) 0.85 mg/dL 0.57-1.25 GLUCOSE RANDOM (BEAKER) (test tned=954) 137 mg/dL 70-105 CALCIUM (BEAKER) (test nnpq=972) 8.1 mg/dL 8.4-10.2 EGFR (BEAKER) (test oqlt=0819) 66 mL/min/1.73 sq m INSUFFICIENT CLINICAL DATA TO CALCULATE ESTIMATED GFR. HEPATIC FUNCTION [id number] 11:34:00* Test Item Value Reference Range Comments TOTAL PROTEIN (BEAKER) (test teob=546) 6.3 gm/dL 6.0-8.3 ALBUMIN (BEAKER) (test lukh=3330) 3.6 g/dL 3.5-5.0 BILIRUBIN TOTAL (BEAKER) (test rrok=382) 0.5 mg/dL 0.2-1.2 BILIRUBIN DIRECT (BEAKER) (test aaqi=934) 0.2 mg/dL 0.1-0.5 ALKALINE PHOSPHATASE (BEAKER) (test hvpv=044) 59 U/L 40-150 AST (SGOT) (BEAKER) (test klky=801) 16 U/L 5-34 ALT (SGPT) (BEAKER) (test oxxw=276) 17 U/L 6-55 [id number] 11:34:00* Test Item Value Reference Range Comments AMYLASE (BEAKER) (test icpo=594) 25 U/L 25-125 [id number] 11:34:00* Test Item Value Reference Range Comments LIPASE (BEAKER) (test dyic=642) 18 U/L 8-78 [id number] 11:29:00* Test Item Value Reference Range Comments PROTIME (BEAKER) (test jpsd=893) 13.6 seconds 11.7-14.7 INR (BEAKER) (test qgve=188) 1.0 <=5.9 PARTIAL THROMBOPLASTIN TIME (BEAKER) (test onvb=171) 25.8 seconds 22.5-36.0 RECOMMENDED COUMADIN/WARFARIN INR THERAPY RANGESSTANDARD DOSE: 2.0 - 3.0 Inclu joshua: PROPHYLAXIS for venous thrombosis, systemic embolization; TREATMENT for syl ous thrombosis and/or pulmonary embolus.HIGH RISK: Target INR is 2.5-3.5 for pat ients with mechanical heart valves.CBC W/PLT COUNT & AUTO [id number] 11:17:00* Test Item Value Reference Range Comments WHITE BLOOD CELL COUNT (BEAKER) (test vdms=344) 6.5 K/ L 3.5-10.5 RED BLOOD CELL COUNT (BEAKER) (test qbzl=424) 3.73 M/ L 3.93-5.22 HEMOGLOBIN (BEAKER) (test utyi=766) 11.0 GM/DL 11.2-15.7 HEMATOCRIT (BEAKER) (test oovj=888) 34.1 % 34.1-44.9 MEAN CORPUSCULAR VOLUME (BEAKER) (test uwie=312) 91.4 fL 79.4-94.8 MEAN CORPUSCULAR HEMOGLOBIN (BEAKER) (test ysbe=584) 29.5 pg 25.6-32.2 MEAN CORPUSCULAR HEMOGLOBIN CONC (BEAKER) (test ouqz=239) 32.3 GM/DL 32.2-35.5 RED CELL DISTRIBUTION WIDTH (BEAKER) (test seak=361) 13.7 % 11.7-14.4 PLATELET COUNT (BEAKER) (test kufb=985) 194 K/CU MM 150-450 MEAN PLATELET VOLUME (BEAKER) (test cgws=380) 10.3 fL 9.4-12.3 NUCLEATED RED BLOOD CELLS (BEAKER) (test ugin=134) 0 /100 WBC 0-0 NEUTROPHILS RELATIVE PERCENT (BEAKER) (test aphg=439) 74 % LYMPHOCYTES RELATIVE PERCENT (BEAKER) (test ucjh=423) 17 % MONOCYTES RELATIVE PERCENT (BEAKER) (test quyn=546) 7 % EOSINOPHILS RELATIVE PERCENT (BEAKER) (test wxjf=698) 1 % BASOPHILS RELATIVE PERCENT (BEAKER) (test lltd=959) 0 % NEUTROPHILS ABSOLUTE COUNT (BEAKER) (test fvhe=284) 4.83 K/ L 1.56-6.13 LYMPHOCYTES ABSOLUTE COUNT (BEAKER) (test iozo=477) 1.09 K/ L 1.18-3.74 MONOCYTES ABSOLUTE COUNT (BEAKER) (test masg=390) 0.48 K/ L 0.24-0.36 EOSINOPHILS ABSOLUTE COUNT (BEAKER) (test dshn=257) 0.09 K/ L 0.04-0.36 BASOPHILS ABSOLUTE COUNT (BEAKER) (test hyeh=253) 0.02 K/ L 0.01-0.08 IMMATURE GRANULOCYTES-RELATIVE PERCENT (BEFELICITAS) (test vguz=4501) 0 % 0-1 CTA ABD/PEL/RUN [id number] 07:27:00 [facility] [address] [place] [address] Patient Name: DARON WOODSON MR #: [id number] : 1950 Age/Sex: 68/F Req #: [id number] Adm Physician: Ordered by: GILBERTO TEJEDA MD Report #: [id number] Location: CT Room/Bed: Procedure: [id number] CT/CTA ABD/PEL/RUN OFF Exam Date: 03/13/18 Exam [...] lesions or biliary ductal dilatation. Status post cholecy stectomy. The spleen, pancreas, adrenal glands, and right kidney are aurelio l. There is a renal cortical defect on the left. The small bowel, and large herminia wel are unremarkable. Small hiatal hernia. Fat containing umbilical hernia. No rmal appendix. There is no evidence of adenopathy or free fluid. Posteri or decompression with spinal fusion from L3-L5 with intervertebral spacers wit h extensive streak artifact. No evidence of acute bony abnormality. Pelvis : The bladder is unremarkable. There is no evidence of adenopathy or free flui d. Fibroid uterus. IMPRESSION: 1) Extensive atherosclerotic changes of the abdominal aorta without evidence of aneurysm or dissection. 2) Focal s evere stenosis of the right superficial femoral artery. Patent three vessel ru noff to the right lower extremity. 3) Mild to moderate atherosclerotic change s in the left lower extremity. Anterior and posterior tibial arteries supply t he runoff to the left lower extremity. Patent proximal and mid peroneal artery with non-visualization of the distal portion which may reflect occlusion or s low flow. Signed by: Dr. Osbaldo Pepe MD on 03/14/2018 7:56 AM Dicta kathleen By: OSBALDO PEPE MD 634 Transcribed By: ROSA ISELA on 03/14/18755 COPY TO: GILBERTO TEJEDA MD POCT-GLUCOSE [id number] 12:53:00* Test Item Value Reference Range Comments POC-GLUCOSE METER (BEAKER) (test zqtu=6562) 231 mg/dL 70-110 TESTED AT [facility] [address] [facility] [address] POCT-GLUCOSE [id number] 08:02:00* Test Item Value Reference Range Comments POC-GLUCOSE METER (BEAKER) (test igkt=2539) 244 mg/dL 70-110 TESTED AT [facility] [address] [facility] [address] [id number] 07:22:00* Test Item Value Reference Range Comments PHOSPHORUS (BEAKER) (test wifv=145) 3.1 mg/dL 2.3-4.7 [id number] 07:22:00* Test Item Value Reference Range Comments MAGNESIUM (BEAKER) (test yvqi=303) 1.8 mg/dL 1.6-2.6 BASIC METABOLIC [id number] 07:22:00* Test Item Value Reference Range Comments SODIUM (BEAKER) (test ylch=130) 131 meq/L 136-145 POTASSIUM (BEAKER) (test eoxk=450) 3.8 meq/L 3.5-5.1 CHLORIDE (BEAKER) (test xpqk=163) 94 meq/L 98-107 CO2 (BEAKER) (test hojy=407) 25 meq/L 22-29 BLOOD UREA NITROGEN (BEAKER) (test kqyc=994) 15 mg/dL 7-21 CREATININE (BEAKER) (test zykz=712) 0.79 mg/dL 0.57-1.25 GLUCOSE RANDOM (BEAKER) (test ufcp=679) 195 mg/dL 70-105 CALCIUM (BEAKER) (test csix=738) 8.9 mg/dL 8.4-10.2 EGFR (BEAKER) (test jqqz=8157) 72 mL/min/1.73 sq m ESTIMATED GFR IS NOT ACCURATE CREATININE CLEARANCE IN PREDICTING GLOMERULAR FILTRATION RATE. ESTIMATED GFR IS NOT APPLICABLE FOR DIALYSIS PATIENTS. HEPATIC FUNCTION [id number] 07:22:00* Test Item Value Reference Range Comments TOTAL PROTEIN (BEAKER) (test fudg=349) 6.9 gm/dL 6.0-8.3 ALBUMIN (BEAKER) (test bszp=4799) 3.8 g/dL 3.5-5.0 BILIRUBIN TOTAL (BEAKER) (test jzsd=621) 1.1 mg/dL 0.2-1.2 BILIRUBIN DIRECT (BEAKER) (test mexr=780) 0.3 mg/dL 0.1-0.5 ALKALINE PHOSPHATASE (BEAKER) (test nwqw=830) 68 U/L 40-150 AST (SGOT) (BEAKER) (test itvz=124) 20 U/L 5-34 ALT (SGPT) (BEAKER) (test vqvk=260) 26 U/L 6-55 CBC W/PLT COUNT & AUTO [id number] 07:01:00* Test Item Value Reference Range Comments WHITE BLOOD CELL COUNT (BEAKER) (test jtfy=079) 6.2 K/ L 3.5-10.5 RED BLOOD CELL COUNT (BEAKER) (test ulqk=956) 3.93 M/ L 3.93-5.22 HEMOGLOBIN (BEAKER) (test xxdn=328) 12.3 GM/DL 11.2-15.7 HEMATOCRIT (BEAKER) (test ecdd=430) 36.1 % 34.1-44.9 MEAN CORPUSCULAR VOLUME (BEAKER) (test amvs=374) 91.9 fL 79.4-94.8 MEAN CORPUSCULAR HEMOGLOBIN (BEAKER) (test mtcf=769) 31.3 pg 25.6-32.2 MEAN CORPUSCULAR HEMOGLOBIN CONC (BEAKER) (test ljpk=290) 34.1 GM/DL 32.2-35.5 RED CELL DISTRIBUTION WIDTH (BEAKER) (test pjck=220) 12.6 % 11.7-14.4 PLATELET COUNT (BEAKER) (test yrov=842) 200 K/CU MM 150-450 MEAN PLATELET VOLUME (BEAKER) (test mqgo=584) 10.4 fL 9.4-12.3 NUCLEATED RED BLOOD CELLS (BEAKER) (test geib=206) 0 /100 WBC 0-0 NEUTROPHILS RELATIVE PERCENT (BEAKER) (test wavc=895) 55 % LYMPHOCYTES RELATIVE PERCENT (BEAKER) (test mjei=788) 31 % MONOCYTES RELATIVE PERCENT (BEAKER) (test xiax=520) 9 % EOSINOPHILS RELATIVE PERCENT (BEAKER) (test aoxt=129) 4 % BASOPHILS RELATIVE PERCENT (BEAKER) (test stvt=060) 1 % NEUTROPHILS ABSOLUTE COUNT (BEAKER) (test oepp=449) 3.44 K/ L 1.56-6.13 LYMPHOCYTES ABSOLUTE COUNT (BEAKER) (test vesa=657) 1.95 K/ L 1.18-3.74 MONOCYTES ABSOLUTE COUNT (BEAKER) (test npxd=000) 0.54 K/ L 0.24-0.36 EOSINOPHILS ABSOLUTE COUNT (BEAKER) (test pgop=126) 0.23 K/ L 0.04-0.36 BASOPHILS ABSOLUTE COUNT (BEAKER) (test kamt=402) 0.03 K/ L 0.01-0.08 IMMATURE GRANULOCYTES-RELATIVE PERCENT (BEAKER) (test jzwn=7066) 0 % 0-1 POCT-GLUCOSE [id number] 21:37:00* Test Item Value Reference Range Comments POC-GLUCOSE METER (BEAKER) (test xdyq=8979) 208 mg/dL 70-110 TESTED AT [facility] [address] [facility] [address] PET, CARDIAC PERFUSION MULTIPLE STUDIES, REST AND [id number] 17:18:00 Reason for exam:->chest pain elevated troponinFINAL REPORT PROCEDURE: Rest/Stress MYOCARDIAL PERFUSION PET with regadenoson\XA9\CPT CODE: 70080RURWSJOGGC: chest pain R07.9PROTOCOL: Limited low-dose CT imaging was performed for attenuation correction. 40.1 mCi of Rb-82 chloride was injected iv at rest, and gated PET (p ositron emission tomography) images were obtained. Subsequently, 40.1 mCi of Rb- 82 chloride was injected iv at expected peak pharmacologic effect, and gated PET images were obtained. PRELIMINARY STRESS TEST DATA FROM NONINVASIVE CARDIOLOGY: Pharmacologic stress was by 10-second iv infusion of 0.4 mg of regadenoson. R adiotracer was injected 30 seconds after start of stress. Heart rate was 46 beat s/min at rest and 60 beats/min (39% of MPHR) at tracer injection. BP was 123/52 mmHg at rest and 124/48 mmHg at tracer injection. Stress was stopped for predete rmined endpoint. The patient experienced no symptoms; treatment was not required . Preliminary ECG evaluation was not available from Cardiology at the time of th is report. (Final ECG interpretation and other stress and monitoring data are re ported separately by Cardiology.) IMAGING FINDINGS: Study quality is good. I mages obtained after stress injection show mild decrease in activity in the apic al lateral and mid anterolateral and mid inferolateral LV. Resting images show n ormal distribution. LV volume appears normal. RV volume appears normal. Gated im ages obtained immediately after stress show normal LV wall motion. Gated images obtained at rest show normal LV wall motion. LVEF at rest is >65%. LVEF at stress is >65%. IMPRESSION: 1. Abnormal study. 2. Appropriate pharmacologic stress. 3. Abnormal myocardial perfusion. There is a mild severity, medium size, reversible, perfusion defect in the lateral LV. 4. Normal resting LV function. No deterioration with pharmacologic stress. 5. Extracardiac tracer distribution is normal. 6. No prior study. Signed: Josie Cano MDReport Verified Date/Time: 10/20/2017 17:18:40 -GLUCOSE [id number] 17:02:00 * Test Item Value Reference Range Comments POC-GLUCOSE METER (BEAKER) (test yffa=2329) 187 mg/dL 70-110 TESTED AT [facility] [address] [facility] [address] POCT-GLUCOSE [id number] 08:08:00* Test Item Value Reference Range Comments POC-GLUCOSE METER (BEAKER) (test rlla=5435) 210 mg/dL 70-110 TESTED AT [place] [id number] [facility] [address] [id number] 05:26:00* Test Item Value Reference Range Comments PHOSPHORUS (BEAKER) (test yvyn=103) 3.0 mg/dL 2.3-4.7 [id number] 05:26:00* Test Item Value Reference Range Comments MAGNESIUM (BEAKER) (test yroj=336) 1.7 mg/dL 1.6-2.6 BASIC METABOLIC [id number] 05:26:00* Test Item Value Reference Range Comments SODIUM (BEAKER) (test wrzg=017) 132 meq/L 136-145 POTASSIUM (BEAKER) (test gubg=423) 3.9 meq/L 3.5-5.1 CHLORIDE (BEAKER) (test qilq=830) 94 meq/L 98-107 CO2 (BEAKER) (test zdys=558) 30 meq/L 22-29 BLOOD UREA NITROGEN (BEAKER) (test sore=649) 16 mg/dL 7-21 CREATININE (BEAKER) (test iyye=046) 0.78 mg/dL 0.57-1.25 GLUCOSE RANDOM (BEAKER) (test oigw=421) 190 mg/dL 70-105 CALCIUM (BEAKER) (test ozvy=711) 8.8 mg/dL 8.4-10.2 EGFR (BEAKER) (test vrru=4057) 73 mL/min/1.73 sq m ESTIMATED GFR IS NOT ACCURATE CREATININE CLEARANCE IN PREDICTING GLOMERULAR FILTRATION RATE. ESTIMATED GFR IS NOT APPLICABLE FOR DIALYSIS PATIENTS. HEPATIC FUNCTION [id number] 05:26:00* Test Item Value Reference Range Comments TOTAL PROTEIN (BEAKER) (test qnpd=579) 6.0 gm/dL 6.0-8.3 ALBUMIN (BEAKER) (test rlke=8546) 3.4 g/dL 3.5-5.0 BILIRUBIN TOTAL (BEAKER) (test ebnx=737) 0.8 mg/dL 0.2-1.2 BILIRUBIN DIRECT (BEAKER) (test ixjc=546) 0.3 mg/dL 0.1-0.5 ALKALINE PHOSPHATASE (BEAKER) (test cbwp=444) 63 U/L 40-150 AST (SGOT) (BEAKER) (test tdgc=625) 16 U/L 5-34 ALT (SGPT) (BEAKER) (test rpme=442) 24 U/L 6-55 CBC W/PLT COUNT & AUTO [id number] 04:45:00* Test Item Value Reference Range Comments WHITE BLOOD CELL COUNT (BEAKER) (test gefg=124) 6.2 K/ L 3.5-10.5 RED BLOOD CELL COUNT (BEAKER) (test cqbd=274) 3.62 M/ L 3.93-5.22 HEMOGLOBIN (BEAKER) (test kava=246) 11.0 GM/DL 11.2-15.7 HEMATOCRIT (BEAKER) (test ngee=113) 32.6 % 34.1-44.9 MEAN CORPUSCULAR VOLUME (BEAKER) (test wyda=188) 90.1 fL 79.4-94.8 MEAN CORPUSCULAR HEMOGLOBIN (BEAKER) (test lmxd=034) 30.4 pg 25.6-32.2 MEAN CORPUSCULAR HEMOGLOBIN CONC (BEAKER) (test hqgk=152) 33.7 GM/DL 32.2-35.5 RED CELL DISTRIBUTION WIDTH (BEAKER) (test mzyr=826) 12.5 % 11.7-14.4 PLATELET COUNT (BEAKER) (test jcix=613) 190 K/CU MM 150-450 MEAN PLATELET VOLUME (BEAKER) (test gdhp=688) 10.4 fL 9.4-12.3 NUCLEATED RED BLOOD CELLS (BEAKER) (test lfwh=859) 0 /100 WBC 0-0 NEUTROPHILS RELATIVE PERCENT (BEAKER) (test asej=639) 51 % LYMPHOCYTES RELATIVE PERCENT (BEAKER) (test tlsd=259) 34 % MONOCYTES RELATIVE PERCENT (BEAKER) (test watd=995) 10 % EOSINOPHILS RELATIVE PERCENT (BEAKER) (test veru=561) 5 % BASOPHILS RELATIVE PERCENT (BEAKER) (test fokd=240) 1 % NEUTROPHILS ABSOLUTE COUNT (BEAKER) (test izax=251) 3.15 K/ L 1.56-6.13 LYMPHOCYTES ABSOLUTE COUNT (BEAKER) (test cltl=176) 2.11 K/ L 1.18-3.74 MONOCYTES ABSOLUTE COUNT (BEAKER) (test jkpe=497) 0.60 K/ L 0.24-0.36 EOSINOPHILS ABSOLUTE COUNT (BEAKER) (test vsfo=326) 0.28 K/ L 0.04-0.36 BASOPHILS ABSOLUTE COUNT (BEAKER) (test qgmp=737) 0.04 K/ L 0.01-0.08 IMMATURE GRANULOCYTES-RELATIVE PERCENT (BEAKER) (test jqjs=7910) 1 % 0-1 POCT-GLUCOSE [id number] 21:39:00* Test Item Value Reference Range Comments POC-GLUCOSE METER (BEAKER) (test epbu=4184) 201 mg/dL 70-110 TESTED AT [facility] [address] [facility] [address] POCT-GLUCOSE [id number] 17:37:00* Test Item Value Reference Range Comments POC-GLUCOSE METER (BEAKER) (test pjwk=8492) 218 mg/dL 70-110 TESTED AT [place] [id number] [facility] [address] CREATINE KINASE (CK), TOTAL AND [id number] 12:42:00* Test Item Value Reference Range Comments CREATINE KINASE TOTAL (BEAKER) (test svyu=418) 90 U/L 29-200 CREATINE KINASE-MB (BEAKER) (test gwjg=944) 1.4 ng/mL 0.0-6.6 CREATINE KINASE-MB INDEX (BEAKER) (test fexc=434) 1.6 % CK-MB Reference Range:<6.7 Normal6.7-10.0 Borderline>10.0 Abnormal TROPONIN [id number] 12:42:00* Test Item Value Reference Range Comments TROPONIN I (BEAKER) (test kqfc=938) 0.08 ng/mL 0.00-0.03 Troponin I (TnI) levels must be interpreted in the context of the presenting sym ptoms and the clinical findings. Elevated TnI levels indicate myocardial damage, but are not specific for ischemic heart disease. Elevated TnI levels are seen in patients with other cardiac conditions (including myocarditis and congestive h eart failure), and slight TnI elevations occur in patients with other conditions , including sepsis, renal failure, acidosis, acute neurological disease, and per sistent tachyarrhythmia.POCT-GLUCOSE [id number] 11:50:00* Test Item Value Reference Range Comments POC-GLUCOSE METER (SIGIFREDO) (test ljch=5695) 173 mg/dL 70-110 TESTED AT [address] [address] SEDIMENTATION [id number] 11:28:00* Test Item Value Reference Range Comments SEDIMENTATION RATE, ERYTHROCYTE (AMANDAAKER) (test dvpn=736) 38 mm/HR 0-40 HEMOGLOBIN [id number] 11:12:00* Test Item Value Reference Range Comments HEMOGLOBIN A1C (BEAKER) (test rbim=138) 7.1 % 4.3-6.1 POCT-GLUCOSE [id number] 07:39:00* Test Item Value Reference Range Comments POC-GLUCOSE METER (SIGIFREDO) (test zqti=6306) 212 mg/dL 70-110 TESTED AT [address] [address] TSH/FREE T4 IF [id number] 05:39:00* Test Item Value Reference Range Comments THYROID STIMULATING HORMONE (BEAKER) (test jocm=777) 1.08 uIU/mL 0.35-4.94 CREATINE KINASE (CK), TOTAL AND [id number] 05:32:00* Test Item Value Reference Range Comments CREATINE KINASE TOTAL (BEAKER) (test wmnd=560) 97 U/L 29-200 CREATINE KINASE-MB (BEAKER) (test giwn=198) 1.9 ng/mL 0.0-6.6 CREATINE KINASE-MB INDEX (BEAKER) (test embc=226) 2.0 % CK-MB Reference Range:<6.7 Normal6.7-10.0 Borderline>10.0 Abnormal TROPONIN [id number] 05:32:00* Test Item Value Reference Range Comments TROPONIN I (BEAKER) (test tbqh=299) 0.10 ng/mL 0.00-0.03 Troponin I (TnI) levels must be interpreted in the context of the presenting sym ptoms and the clinical findings. Elevated TnI levels indicate myocardial damage, but are not specific for ischemic heart disease. Elevated TnI levels are seen in patients with other cardiac conditions (including myocarditis and congestive h eart failure), and slight TnI elevations occur in patients with other conditions , including sepsis, renal failure, acidosis, acute neurological disease, and per sistent tachyarrhythmia.[id number] 05:25:00* Test Item Value Reference Range Comments PHOSPHORUS (BEAKER) (test wxtr=036) 3.1 mg/dL 2.3-4.7 [id number] 05:25:00* Test Item Value Reference Range Comments MAGNESIUM (BEAKER) (test qddn=982) 1.8 mg/dL 1.6-2.6 BASIC METABOLIC [id number] 05:25:00* Test Item Value Reference Range Comments SODIUM (BEAKER) (test auxj=964) 134 meq/L 136-145 POTASSIUM (BEAKER) (test zusg=965) 3.2 meq/L 3.5-5.1 CHLORIDE (BEAKER) (test cxhu=161) 94 meq/L 98-107 CO2 (BEAKER) (test sduh=868) 30 meq/L 22-29 BLOOD UREA NITROGEN (BEAKER) (test uxxg=807) 16 mg/dL 7-21 CREATININE (BEAKER) (test onsi=517) 0.79 mg/dL 0.57-1.25 GLUCOSE RANDOM (BEAKER) (test vrla=421) 184 mg/dL 70-105 CALCIUM (BEAKER) (test zliu=164) 8.8 mg/dL 8.4-10.2 EGFR (BEAKER) (test winx=9150) 72 mL/min/1.73 sq m ESTIMATED GFR IS NOT ACCURATE CREATININE CLEARANCE IN PREDICTING GLOMERULAR FILTRATION RATE. ESTIMATED GFR IS NOT APPLICABLE FOR DIALYSIS PATIENTS. LIPID [id number] 05:25:00* Test Item Value Reference Range Comments TRIGLYCERIDES (BEAKER) (test gdul=448) 238 mg/dL CHOLESTEROL (BEAKER) (test xhgf=946) 184 mg/dL HDL CHOLESTEROL (BEAKER) (test qcmp=975) 37 mg/dL LDL CHOLESTEROL CALCULATED (BEAKER) (test xbdt=730) 99 mg/dL Triglyceride Reference Range: Low Risk <150 Borderline 150-199 High Risk 200-499 Very High Risk >=500Cholesterol Reference Range: Low Risk <200 Borderline 200-239 High Risk >240HDL Cholesterol Reference Range: Low Risk >=60 High Risk <40LDL Cholesterol Reference Range: Optimal <100 Near Optimal 100-129 Borderline 130-159 High 160-189 Very High >=190 HEPATIC FUNCTION [id number] 05:25:00* Test Item Value Reference Range Comments TOTAL PROTEIN (BEAKER) (test tvnr=280) 6.0 gm/dL 6.0-8.3 ALBUMIN (BEAKER) (test pyxg=8699) 3.5 g/dL 3.5-5.0 BILIRUBIN TOTAL (BEAKER) (test rcfc=087) 0.6 mg/dL 0.2-1.2 BILIRUBIN DIRECT (BEAKER) (test xmck=779) 0.2 mg/dL 0.1-0.5 ALKALINE PHOSPHATASE (BEAKER) (test dwgz=136) 62 U/L 40-150 AST (SGOT) (BEAKER) (test vsqc=647) 22 U/L 5-34 ALT (SGPT) (BEAKER) (test gcbj=893) 28 U/L 6-55 C-REACTIVE [id number] 05:25:00* Test Item Value Reference Range Comments C-REACTIVE PROTEIN (BEAKER) (test pfaf=950) 0.16 mg/dL 0.00-0.50 CBC W/PLT COUNT & AUTO [id number] 04:58:00* Test Item Value Reference Range Comments WHITE BLOOD CELL COUNT (BEAKER) (test ynlw=196) 10.1 K/ L 3.5-10.5 RED BLOOD CELL COUNT (BEAKER) (test pueh=444) 3.36 M/ L 3.93-5.22 HEMOGLOBIN (BEAKER) (test wspx=218) 10.5 GM/DL 11.2-15.7 HEMATOCRIT (BEAKER) (test udzd=076) 30.5 % 34.1-44.9 MEAN CORPUSCULAR VOLUME (BEAKER) (test zpbk=424) 90.8 fL 79.4-94.8 MEAN CORPUSCULAR HEMOGLOBIN (BEAKER) (test indb=884) 31.3 pg 25.6-32.2 MEAN CORPUSCULAR HEMOGLOBIN CONC (BEAKER) (test xucc=455) 34.4 GM/DL 32.2-35.5 RED CELL DISTRIBUTION WIDTH (BEAKER) (test faqs=221) 12.9 % 11.7-14.4 PLATELET COUNT (BEAKER) (test svwi=311) 189 K/CU MM 150-450 MEAN PLATELET VOLUME (BEAKER) (test ipmc=086) 10.5 fL 9.4-12.3 NUCLEATED RED BLOOD CELLS (BEAKER) (test xbur=595) 0 /100 WBC 0-0 NEUTROPHILS RELATIVE PERCENT (BEAKER) (test pdpk=809) 71 % LYMPHOCYTES RELATIVE PERCENT (BEAKER) (test bevz=320) 19 % MONOCYTES RELATIVE PERCENT (BEAKER) (test itei=719) 8 % EOSINOPHILS RELATIVE PERCENT (BEAKER) (test iwwy=994) 1 % BASOPHILS RELATIVE PERCENT (BEAKER) (test pmqb=557) 0 % NEUTROPHILS ABSOLUTE COUNT (BEAKER) (test dhww=661) 7.10 K/ L 1.56-6.13 LYMPHOCYTES ABSOLUTE COUNT (BEAKER) (test xhei=226) 1.94 K/ L 1.18-3.74 MONOCYTES ABSOLUTE COUNT (BEAKER) (test kqjt=233) 0.79 K/ L 0.24-0.36 EOSINOPHILS ABSOLUTE COUNT (BEAKER) (test bmgc=201) 0.14 K/ L 0.04-0.36 BASOPHILS ABSOLUTE COUNT (BEAKER) (test rvvn=598) 0.03 K/ L 0.01-0.08 IMMATURE GRANULOCYTES-RELATIVE PERCENT (BEAKER) (test szem=1778) 1 % 0-1 POCT-GLUCOSE [id number] 01:44:00* Test Item Value Reference Range Comments POC-GLUCOSE METER (BEAKER) (test miix=3772) 178 mg/dL 70-110 TESTED AT [facility] [address] [facility] [address] [id number] 22:16:00* Test Item Value Reference Range Comments PROTIME (BEAKER) (test sbmc=314) 13.9 seconds 11.7-14.7 INR (BEAKER) (test pkbu=876) 1.1 <=5.9 PARTIAL THROMBOPLASTIN TIME (BEAKER) (test zqga=277) 21.1 seconds 22.5-36.0 RECOMMENDED COUMADIN/WARFARIN INR THERAPY RANGESSTANDARD DOSE: 2.0 - 3.0 Inclu joshua: PROPHYLAXIS for venous thrombosis, systemic embolization; TREATMENT for syl ous thrombosis and/or pulmonary embolus.HIGH RISK: Target INR is 2.5-3.5 for pat ients with mechanical heart valves.RAD, CHEST, 1 VIEW, NON [id number] 22:01:00Reason for exam:->CHEST PAINFINAL REPORT Comparison examination: CT scan of the chest 10/16/2001 No pneumothorax, focal pulmonary consolidation, or significant pleural effusion. The cardiac size is magnified by the portable technique. Mediastinal surgical clips. Normal mediastinal contours. Atherosclerotic aortic calcification. Normal skeleton and soft tissues. Impression: No acute abnormality. Signed: Obie Maradiaga MDReport Verified Date/Time: 10/18/2017 22:01:31 Reading Location: [address] Reading Room [place], [id number] 21:43:00* Test Item Value Reference Range Comments KETONES, BLOOD (BEAKER) (test autk=4202) 0.1 mmol/L <0.4 TROPONIN [id number] 21:08:00* Test Item Value Reference Range Comments TROPONIN I (BEAKER) (test eyeo=337) 0.02 ng/mL 0.00-0.03 Troponin I (TnI) levels must be interpreted in the context of the presenting sym ptoms and the clinical findings. Elevated TnI levels indicate myocardial damage, but are not specific for ischemic heart disease. Elevated TnI levels are seen in patients with other cardiac conditions (including myocarditis and congestive h eart failure), and slight TnI elevations occur in patients with other conditions , including sepsis, renal failure, acidosis, acute neurological disease, and per sistent tachyarrhythmia.HEPATIC FUNCTION [id number] 21:01:00* Test Item Value Reference Range Comments TOTAL PROTEIN (BEAKER) (test gzta=071) 6.7 gm/dL 6.0-8.3 ALBUMIN (BEAKER) (test zegu=6690) 3.9 g/dL 3.5-5.0 BILIRUBIN TOTAL (BEAKER) (test ildl=933) 0.6 mg/dL 0.2-1.2 BILIRUBIN DIRECT (BEAKER) (test ygrn=251) 0.2 mg/dL 0.1-0.5 ALKALINE PHOSPHATASE (BEAKER) (test dogr=185) 77 U/L 40-150 AST (SGOT) (BEAKER) (test pgbb=327) 20 U/L 5-34 ALT (SGPT) (BEAKER) (test gkdh=885) 32 U/L 6-55 BASIC METABOLIC [id number] 21:01:00* Test Item Value Reference Range Comments SODIUM (BEAKER) (test xfau=124) 132 meq/L 136-145 POTASSIUM (BEAKER) (test tiac=327) 3.0 meq/L 3.5-5.1 CHLORIDE (BEAKER) (test wars=697) 94 meq/L 98-107 CO2 (BEAKER) (test akeb=337) 23 meq/L 22-29 BLOOD UREA NITROGEN (BEAKER) (test mwbr=864) 20 mg/dL 7-21 CREATININE (BEAKER) (test okxq=550) 0.99 mg/dL 0.57-1.25 GLUCOSE RANDOM (BEAKER) (test fmak=082) 246 mg/dL 70-105 CALCIUM (BEAKER) (test kmwt=297) 8.8 mg/dL 8.4-10.2 EGFR (BEAKER) (test wqln=1771) 56 mL/min/1.73 sq m ESTIMATED GFR IS NOT ACCURATE CREATININE CLEARANCE IN PREDICTING GLOMERULAR FILTRATION RATE. ESTIMATED GFR IS NOT APPLICABLE FOR DIALYSIS PATIENTS. [id number] 21:01:00* Test Item Value Reference Range Comments MAGNESIUM (BEAKER) (test mucs=299) 1.6 mg/dL 1.6-2.6 [id number] 21:01:00* Test Item Value Reference Range Comments LIPASE (BEAKER) (test toru=777) 54 U/L 8-78 CBC W/PLT COUNT & AUTO [id number] 20:42:00* Test Item Value Reference Range Comments WHITE BLOOD CELL COUNT (BEAKER) (test myql=143) 7.0 K/ L 3.5-10.5 RED BLOOD CELL COUNT (BEAKER) (test xiqz=673) 3.69 M/ L 3.93-5.22 HEMOGLOBIN (BEAKER) (test cgtx=289) 11.8 GM/DL 11.2-15.7 HEMATOCRIT (BEAKER) (test miyr=538) 33.3 % 34.1-44.9 MEAN CORPUSCULAR VOLUME (BEAKER) (test mrrm=302) 90.2 fL 79.4-94.8 MEAN CORPUSCULAR HEMOGLOBIN (BEAKER) (test pywf=788) 32.0 pg 25.6-32.2 MEAN CORPUSCULAR HEMOGLOBIN CONC (BEAKER) (test omww=550) 35.4 GM/DL 32.2-35.5 RED CELL DISTRIBUTION WIDTH (BEAKER) (test bkqx=775) 12.7 % 11.7-14.4 PLATELET COUNT (BEAKER) (test qiyw=103) 223 K/CU MM 150-450 MEAN PLATELET VOLUME (BEAKER) (test kqvj=754) 10.1 fL 9.4-12.3 NUCLEATED RED BLOOD CELLS (BEAKER) (test etqd=949) 0 /100 WBC 0-0 NEUTROPHILS RELATIVE PERCENT (BEAKER) (test jlaa=501) 62 % LYMPHOCYTES RELATIVE PERCENT (BEAKER) (test qeom=369) 27 % MONOCYTES RELATIVE PERCENT (BEAKER) (test avbq=593) 9 % EOSINOPHILS RELATIVE PERCENT (BEAKER) (test bhzb=302) 2 % BASOPHILS RELATIVE PERCENT (BEAKER) (test sczm=358) 0 % NEUTROPHILS ABSOLUTE COUNT (BEAKER) (test gsme=123) 4.28 K/ L 1.56-6.13 LYMPHOCYTES ABSOLUTE COUNT (BEAKER) (test srhy=852) 1.85 K/ L 1.18-3.74 MONOCYTES ABSOLUTE COUNT (BEAKER) (test jwkc=870) 0.63 K/ L 0.24-0.36 EOSINOPHILS ABSOLUTE COUNT (BEAKER) (test spjl=110) 0.14 K/ L 0.04-0.36 BASOPHILS ABSOLUTE COUNT (BEAKER) (test jjfa=890) 0.03 K/ L 0.01-0.08 IMMATURE GRANULOCYTES-RELATIVE PERCENT (BEAKER) (test kzdj=7697) 0 % 0-1
--- NOTE | 2019-08-05 14:45 | NUR ---
1445pm RECEIVING NOTE [facility] DEPT............................................................... Bedside report received from LAUREN Brothers. Identifierx2. Alert oriented and appropriate, PERRLA, respirations even and unlabored to room air. Pulses x4 extremities equal and strong. Pedal pulses PT/DP X4 and marked. Cap fill brisk < 3 sec. Rt arm site No gross issues pain,pallor pressure or dysrhythmia Skin warm and dry integrity appears XXX. IV 20g to XXX presents healthy w/o s/s of infiltration or complaint. Abdomen soft and supple. pt offered toileting, denies need to urinate or defecate. No personal affects with patient. Family XXXXX. Pt and family verbalizes understanding of POC. Currently w/o complaint of pain or need. krystal/rn
--- NOTE | 2019-08-05 15:45 | NUR ---
1545p RADIAL COMPRESSION REMOVAL NOTE: Initial Cuff volume 10 cc 1545p -2cc Removed No hematoma/bleeding noted with normal neurovascular function. 1600p -5cc Removed No hematoma/ bleeding noted with normal neurovascular function. 1615p -5cc Removed No hematoma/bleeding noted with normal neurovascular function. Air removal completed. Stasis achieved sterile 2x2,Tegaderm, Coban dressing No hematoma, bleeding noted with normal neurovascular function. Wrist splint in place. Pt instructed on POC. Ds/Rn
--- NOTE | 2019-08-05 16:30 | NUR ---
1630pm [facility] DISCHARGE NURSING NOTE Pt meets DC criteria. Skin assessed for s/s of complication and presence of hematoma. Skin warm, dry, no discolor, and pulses present. IV removed from left hand. Distal tip appears intact. VS WNL. Pt denies pain, sob, or need at this time. Family at bedside. Review of discharge paperwork and follow up instructions. verbalized understanding. Pt to wheelchair and transported to front of hospital. Transferred to private vehicle under own strength w/o incident with DC paperwork in hand. - krystal/tasha
--- NOTE | 2019-09-10 11:39 | Operative Report ---
DATE OF PROCEDURE: SURGEON: Richard Watson MD INDICATIONS FOR PROCEDURE: Preoperative cardiovascular assessment, history of CAD. PREPROCEDURE ASSESSMENT: The risks, benefits, and alternatives to treatment were explained to the patient prior to the procedure. The patient deemed to be an appropriate candidate for moderate sedation. Informed consent was obtained and documented in the medical record. MEDICATIONS: Please see nursing notes for list of medications administered throughout the procedure. PROCEDURES PERFORMED: 1. Coronary angiography. 2. Bypass graft angiography. PROCEDURE IN DETAIL: The patient was brought to the cardiac catheterization laboratory in a fasting state. The right groin was prepped and draped in a sterile fashion. A 6-Nigerian sheath was inserted into the right common femoral artery using modified Seldinger technique and micropuncture equipment. Coronary angiography was performed with JL4 and JR4. A 5-Nigerian diagnostic catheters, bypass graft angiography was performed using 5-Nigerian RACIEL catheter to engage the PALACIOS. All the SVG grafts were known to be occluded from previous cath. All catheter was removed over a wire. Access site was closed using a vascular closure device. The patient tolerated the procedure well. There were no immediate complications. SIGNIFICANT FINDINGS: Left main, large vessel, calcified, mild CAD. LAD is completely occluded in the midportion. Mid to distal LAD fills via PALACIOS to LAD graft. Left circumflex, nondominant circumflex, patent stent in the midportion, one large OM branch provides collaterals to the posterolateral system. RCA, 100% occluded, chronic total occlusion in the midportion. Distal RCA fills via collaterals from the LAD and left circumflex systems. PALACIOS to LAD, widely patent graft anastomosed to the mid LAD. GRAFTS AND IMPLANTS: None. SPECIMEN REMOVED: None. ESTIMATED BLOOD LOSS: 20 mL. COMPLICATIONS: None. FINAL RECOMMENDATIONS: 1. The patient is cleared from cardiovascular standpoint to proceed with surgery. 2. Follow up in clinic 2 weeks post procedure. Richard Watson MD KVP/MODL /[id number]
== END | disposition home or self-care (01) ==
LOC: CATH LAB 07:12
PROVIDERS: ATTEND Internal Medicine Cardiovascular Disease
DX: I25.708 Atherosclerosis of coronary artery bypass graft(s), unspecified, with other forms of angina pectoris (principal); I10 Essential (primary) hypertension; I73.9 Peripheral vascular disease, unspecified; I35.0 Nonrheumatic aortic (valve) stenosis; E78.5 Hyperlipidemia, unspecified; I83.893 Varicose veins of bilateral lower extremities with other complications; E66.9 Obesity, unspecified; E11.69 Type 2 diabetes mellitus with other specified complication; Z01.812 Encounter for preprocedural laboratory examination; Z79.02 Long term (current) use of antithrombotics/antiplatelets; Z79.82 Long term (current) use of aspirin; Z79.84 Long term (current) use of oral hypoglycemic drugs; Z68.31 Body mass index [BMI] 31.0-31.9, adult; Z95.1 Presence of aortocoronary bypass graft; Z82.49 Family history of ischemic heart disease and other diseases of the circulatory system
CPT/HCPCS: 36415; 80053; 85025; 85610; 93455; C1769; C1887; J0360; J2001; J2250; J3010; J7030; Q9967; 99152; 99153

== ENCOUNTER → 2022-10-09 | Day surgery (SDC) | payer MEDICARE ==
[2022-10-05 10:27] LABS: BASOPHILS % 0.2 % (0.0-1.0); EOSINOPHILS # (AUTO) 0.1 (0.0-0.4); EOSINOPHILS % 2.2 % (0.0-6.0); HEMATOCRIT 35.8 % (34.2-44.1); HEMOGLOBIN 11.6 g/dL (12.0-16.0); LYMPHOCYTES # (AUTO) 1.4 (1.0-3.2); LYMPHOCYTES % 28.6 % (18.0-39.1); MEAN CORPUSCULAR HEMOGLOBIN 30.9 pg (28-32); MEAN CORPUSCULAR HGB CONC 32.4 g/dL (31-35); MEAN CORPUSCULAR VOLUME 95.2 fL (81-99); MONOCYTES # (AUTO) 0.4 (0.2-0.8); MONOCYTES % 7.4 % (4.4-11.3); NEUTROPHILS % 61.2 % (38.7-80.0); PLATELET COUNT 181 x10e3/uL (140-360); RED BLOOD COUNT 3.76 x10e6/uL (3.6-5.1); RED CELL DISTRIBUTION WIDTH 13.2 % (11.7-14.4)
[~2022-10-09] MED LIST changes: +EPHEDRINE SULFATE INJ 50 MG/ML VIAL ONE; -FENTANYL CITRATE/PF 100MCG/2 ML INJ ONE; +FERROUS SULFAT325 MG PO; +GLUCAGON FOR INJ 1 MG VIAL ONE; -HEPARIN SOD/SOD CHLORIDE 2,000 ML ONE; -IOPAMIDOL 370 MG/ML 200 ML INFUS..BTL INJ ONE; +LACTATED RINGER'S 1,000 ML ONE; +LEXAPRO10 MG PO; -LIDOCAINE HCL 2% LOCAL 20 ML VIAL ONE; +LIDOCAINE HCL 2% LOCAL INJ 5 ML SDV VIAL INJ ONE; -MIDAZOLAM HCL 2 MG/2 ML VIAL ONE; +OMEPRAZOLE40 MG PO; +PROPOFOL IV EMULSION 10 MG/ML 20 ML VIAL ONE; -SODIUM CHLORIDE 0.9% 1000ML 1,000 ML ONE; -VERAPAMIL HCL 2.5 MG/ML 2 ML VIAL ONE; +VIT B12 PO
[2022-10-09 11:20] VITALS: BP 134/68; PULSE 70; RESP 17; O2SAT 98
== END | disposition home or self-care (01) ==
LOC: OR 07:40
PROVIDERS: ATTEND Internal Medicine Gastroenterology
DX: K21.9 Gastro-esophageal reflux disease without esophagitis (principal); K29.50 Unspecified chronic gastritis without bleeding; K22.70 Barrett's esophagus without dysplasia; K44.9 Diaphragmatic hernia without obstruction or gangrene; R15.9 Full incontinence of feces; K57.30 Diverticulosis of large intestine without perforation or abscess without bleeding; K62.89 Other specified diseases of anus and rectum; I10 Essential (primary) hypertension; E78.5 Hyperlipidemia, unspecified; E11.9 Type 2 diabetes mellitus without complications; F41.9 Anxiety disorder, unspecified; F32.A Depression, unspecified; M06.9 Rheumatoid arthritis, unspecified; I25.810 Atherosclerosis of coronary artery bypass graft(s) without angina pectoris; Z01.810 Encounter for preprocedural cardiovascular examination; Z01.812 Encounter for preprocedural laboratory examination; Z79.02 Long term (current) use of antithrombotics/antiplatelets; Z79.82 Long term (current) use of aspirin; Z79.84 Long term (current) use of oral hypoglycemic drugs; Z79.899 Other long term (current) drug therapy; Z95.1 Presence of aortocoronary bypass graft; Z80.0 Family history of malignant neoplasm of digestive organs
CPT/HCPCS: 36415 ×2; 43239; 45380; 82948; 85025; 88305; 88342; 93005; J0360; J1610; J2001; J2704; J7121; 45378; 88304; 88312